=== PATIENT | male | born 1985 | race African-American/Black ===

== ENCOUNTER 2018-11-01 02:59 | Emergency (ER) | payer MEDICAID ==
[~2018-11-01] VITALS: Ht 175.3 cm; Wt 84.0 kg
[2018-11-01] MEDS ORDERED: AZITHROMYCIN 500 MG TABLET PO ONE (05:15)
[2018-11-01] MEDS ORDERED: LIDOCAINE HCL 1% 20ML VIAL (Pyxis) INJ INFIL ONE (05:15)
[2018-11-01] MEDS ORDERED: CEFTRIAXONE SODIUM 250 MG/VIAL IM ONE (05:15)
[2018-11-01 05:44] LABS: CLARITY URINE TURBID (CLEAR); COLOR URINE YELLOW (YELLOW); KETONES URINE TRACE (NEGATIVE); LEUKOCYTE ESTERASE URINE 3+ (NEGATIVE); NITRITE URINE NEGATIVE (NEGATIVE); OCCULT BLOOD URINE 1+ (NEGATIVE); PROTEIN URINE 1+ (NEGATIVE); SPECIFIC GRAVITY URINE 1.029 (1.005-1.030); UROBILINOGEN URINE 0.2 E.U./dL (0.2-1.0)
[2018-11-01 06:05] VITALS: BP 163/85
[2018-11-03 04:13] LABS: CHLAMYDIA TRACHOMATIS NAA Negative (Negative); NEISSERIA GONORRHOEAE NAA Positive (Negative)
== END 2018-11-01 06:14 | disposition home or self-care (01) ==
LOC: ER 02:59
DX: Z20.2 Contact with and (suspected) exposure to infections with a predominantly sexual mode of transmission (principal); R36.9 Urethral discharge, unspecified; R30.0 Dysuria; I10 Essential (primary) hypertension; F17.210 Nicotine dependence, cigarettes, uncomplicated
CPT/HCPCS: 81003; 87086; 87491; 87591; 96372; 99283; J0696; J3490